=== PATIENT | female | born 1930 | race Caucasian/White ===

== ENCOUNTER 2017-02-20 06:43 | Day surgery (SDC) | payer MEDICARE ==
--- NOTE | ~2017-02-20 | EGD ---
EGD REPORT [facility] [address] [address] NAME: LOLY CONTRERAS : 34 STATUS : REG [facility] [place] PAT#: [id number] AGE: 86 ADM/REG DATE : 02/20/17 MR#: [id number] REPORT SERV DATE: 02/20/17 DICTATED BY: AYANA TORREZ DATE: 02/20/17 REPORT STATUS : Draft TRANSCRIBED BY: [facility] DATE: 02/20/17 [facility] Center Patient Name: Loly Contreras Date of : 1930 Attending MD: AYANA TORREZ MD Procedure Date No Time: 02/20/2017 Procedure: Colonoscopy Indications: Personal history of colonic polyps, Weight loss, Last colonoscopy: May 2009, Incidental scant hematochezia Referring MD: WENDY VO II Medicines: Propofol per Anesthesia Complications: No immediate complications. Estimated blood loss: None. Procedure: Pre-Anesthesia Assessment: - After reviewing the risks and benefits, the patient was deemed in satisfactory condition to undergo the procedure. - Prior to the procedure, a History and Physical was performed, and patient medications and allergies were reviewed. The patient's tolerance of previous anesthesia was also reviewed. The risks and benefits of the procedure and the sedation options and risks were discussed with the patient. All questions were answered, and informed consent was obtained. Prior Anticoagulants: The patient has taken no previous anticoagulant or antiplatelet agents. ASA Grade Assessment: II - A patient with mild systemic disease. After reviewing the risks and benefits, the patient was deemed in satisfactory condition to undergo the procedure. After I obtained informed consent, the scope was passed under direct vision. Throughout the procedure, the patient's blood pressure, pulse, and oxygen saturations were monitored continuously. The CF [id number] was introduced through the anus and advanced to the cecum, identified by appendiceal orifice and ileocecal valve. The colonoscopy was somewhat difficult due to a tortuous colon. Successful completion of the procedure was aided by straightening and shortening the scope to obtain bowel loop reduction. The ileocecal valve and appendiceal orifice were photographed. The patient tolerated the procedure well. The quality of the bowel preparation was adequate to identify polyps 6 mm and larger in size. The bowel preparation used was SUPREP. Scope withdrawal time was nearly 9 minutes. Findings: EGD REPORT [place] [id number] [facility] [place]. [address] NAME: LOLY CONTRERAS : 34 STATUS : REG [facility]#: [id number] AGE: 86 ADM/REG DATE : 02/20/17 MR#: [id number] REPORT SERV DATE: 02/20/17 DICTATED BY: AYANA TORREZ DATE: 02/20/17 REPORT STATUS : Draft TRANSCRIBED BY: [facility] DATE: 02/20/17 The perianal and digital rectal examinations were normal. Pertinent negatives include normal sphincter tone. Non-bleeding internal hemorrhoids were found during retroflexion and were small and Grade I (internal hemorrhoids that do not prolapse). Multiple small-mouthed diverticula were found in the sigmoid colon and in the descending colon. A sessile polyp was found in the transverse colon. The polyp was 6 mm in size. The polyp was removed with a hot snare. Resection and retrieval were complete. Estimated blood loss: none. The exam was otherwise without abnormality. Impression: - Non-bleeding internal hemorrhoids. - Moderate diverticulosis in the sigmoid colon and in the descending colon. - One 6 mm polyp in the transverse colon. Resected and retrieved. - The examination was otherwise normal. Recommendation: - Discharge patient to home (ambulatory). - High fiber diet indefinitely. - Continue present medications. - Await pathology results. - Repeat colonoscopy will not be performed due to advanced age. - Return to GI clinic PRN. - Patient has a contact number available for emergencies. The signs and symptoms of potential delayed complications were discussed with the patient. Return to normal activities tomorrow. Written discharge instructions were provided to the patient. Procedure Code(s): --- Professional --- 46023, Colonoscopy, flexible, proximal to splenic flexure; with removal of tumor(s), polyp(s), or other lesion(s) by snare technique Diagnosis Code(s): --- Professional --- K64.0, First degree hemorrhoids K57.30, Diverticulosis of large intestine without perforation or abscess without bleeding D12.3, Benign neoplasm of transverse colon Z86.010, Personal history of colonic polyps R63.4, Abnormal weight loss CPT copyright 2013 [employer]. All rights reserved. EGD REPORT [facility] [address] [id number] NAME: LOLY CONTRERAS : 34 STATUS : REG [facility] [place] PAT#: [id number] AGE: 86 ADM/REG DATE : 02/20/17 MR#: [id number] REPORT SERV DATE: 02/20/17 DICTATED BY: AYANA TORREZ. DATE: 02/20/17 REPORT STATUS : Draft TRANSCRIBED BY: [employer] DATE: 02/20/17 The codes documented in this report are preliminary and upon statistical analyst review may be revised to meet current compliance requirements. AYANA TORREZ MD 02/20/2017 9:16 AM This report has been signed electronically. Number of Addenda: 0 Note Initiated On: 02/20/2017 8:37 AM Scope Withdrawal Time 0 hours 8 minutes 56 seconds [address] [facility] [address] [place] [id number]
[~2017-02-20 06:43] MED LIST: ALEVE220 MG PO; BEN25 PO; BETHAN10B PO; COREG3 PO; COZ50 PO; EVISTA60 PO; FLONASE NAS; MIDRIN PO; MULTIVITAMI1 PO; PRIN5 PO; RESTASIS OPH; SINGULAIR1 PO; TIMOLOL MAL0.5 % OPH; TYLENOL ARTH650 MG PO; XALAT OPH; ZOCOR40 PO
== END 2017-02-20 23:59 | disposition home or self-care (01) ==
LOC: DMU 06:43
PROVIDERS: Internal Medicine Gastroenterology
PROC: 0DBL8ZX Excision of Transverse Colon, Via Natural or Artificial Opening Endoscopic, Diagnostic (ICD-10-PCS; principal; 2017-02-20 14:30)
DX: D12.3 Benign neoplasm of transverse colon (principal); K64.0 First degree hemorrhoids; K57.30 Diverticulosis of large intestine without perforation or abscess without bleeding; I10 Essential (primary) hypertension; E11.9 Type 2 diabetes mellitus without complications; M19.90 Unspecified osteoarthritis, unspecified site; G43.909 Migraine, unspecified, not intractable, without status migrainosus; Z86.010 Personal history of colon polyps; Z88.5 Allergy status to narcotic agent; Z98.890 Other specified postprocedural states
CPT/HCPCS: 88305